=== PATIENT | female | born 1960 | race Caucasian/White ===

== ENCOUNTER 2016-08-27 13:14 | Emergency (ER) | payer SELFPAY ==
[2016-08-27] MEDS ORDERED: TRAMADOL HCL50 M2 PO (16:37)
[2016-08-27] MEDS ORDERED: MEDROL4 M2 PO (16:37)
== END 2016-08-27 16:48 ==
LOC: EDMED 13:14
DX: M54.31 Sciatica, right side (principal); Z98.890 Other specified postprocedural states; F17.210 Nicotine dependence, cigarettes, uncomplicated

== ENCOUNTER 2016-10-13 12:08 | Emergency (ER) | payer SELFPAY ==
[~2016-10-13 12:08] MED LIST: MEDROL4 M2 PO; TRAMADOL HCL50 M2 PO
[2016-10-13] MEDS ORDERED: NO HOME MEDICATION XX (13:39)
[2016-10-13] MEDS ORDERED: CLEOCIN HCL300 M1 PO (15:42)
[2016-10-13] MEDS ORDERED: NORCO 7.5-3251 EACH PO (15:42)
== END 2016-10-13 15:58 ==
LOC: EDMED 12:08
PROC: 0H9GXZZ Drainage of Left Hand Skin, External Approach (ICD-10-PCS; principal; 2016-10-13)
DX: L03.012 Cellulitis of left finger (principal)